=== PATIENT | male | born 1990 | race Caucasian/White ===

== ENCOUNTER 2018-02-10 17:52 | Emergency (ER) | payer SELFPAY ==
[~2018-02-10] VITALS: Ht 188 cm; Wt 90.0 kg
[2018-02-10 17:56] VITALS: BP 126/84
[2018-02-10] MEDS ORDERED: RALTEGRAVIR 400MG TABLET PO ONE (18:00)
[2018-02-10] MEDS ORDERED: ONDANSETRON HCL 4MG TABLET PO ONE (18:00)
[2018-02-10] MEDS ORDERED: EMTRICITABINE 200MG CAPSULE PO ONE (18:00)
[2018-02-10] MEDS ORDERED: TENOFOVIR 300MG TABLET PO ONE (18:00)
[2018-02-10 20:07] LABS: HEPATITIS B SURFACE ANTIGEN NEGATIVE
[2018-02-10 20:59] LABS: HEPATITIS B SURFACE AB < 3.1 mIU/mL
[2018-02-10 21:10] LABS: HEPATITIS B SURFACE ANTIGEN NEGATIVE
[2018-02-12 09:09] LABS: HEPATITIS B CORE ANTIBODY Negative (Negative)
== END 2018-02-10 18:50 | disposition home or self-care (01) ==
LOC: ER 18:37
DX: Z77.21 Contact with and (suspected) exposure to potentially hazardous body fluids (principal)
CPT/HCPCS: 36415; 87186; 99284; Q0162